=== PATIENT | female | born 1995 | race Caucasian/White ===

== ENCOUNTER 2016-12-28 10:38 | Emergency (ER) | payer MEDICAID ==
[~2016-12-28] VITALS: Ht 170.2 cm; Wt 85.7 kg
[2016-12-28 10:43] VITALS: BP 124/71
[2016-12-28] MEDS ORDERED: NKM (11:31)
--- NOTE | 2016-12-28 11:34 | Emergency Room Report ---
History of Present Illness General Chief Complaint: Upper Extremity Injury Source: Patient Present Illness HPI 21YOF with pain to distal end of left middle finger after punching wall last night. States she saw some hyperextension and then "popped it back" and now just c/o pain, swelling to tip. No previous injury noted. No OTC meds. No pain anywhere else. Allergies: Coded Allergies: No Known Allergies (Unverified , 12/28/16) Patient History Past Medical History: none Past Surgical History: none Pertinent Family History: none Social History: Denies: alcohol use, drug use, smoking Last Menstrual Period: 12/07/16 Now: No Immunizations: UTD Reviewed Nursing Documentation: PMH: Agreed, PSxH: Agreed Nursing Documentation-PMH Past Medical History: No Stated History Review of Systems All Other Systems: negative except mentioned in HPI Physical Exam Vital Signs Date Time Temp Pulse Resp B/P Pulse Ox O2 Delivery O2 Flow Rate FiO2 12/28/16 10:43 98.1 61 16 124/71 100 Room Air Sp02 EP Interpretation: reviewed, normal General Appearance: normal inspection, well appearing, no apparent distress, alert Head: atraumatic ENT: normal ENT inspection, hearing grossly normal, normal voice Neck: normal inspection, full range of motion, supple, no bony tend Respiratory: normal inspection, lungs clear, normal breath sounds, no respiratory distress, no retraction, no wheezing Cardiovascular #1: regular rate, rhythm, no edema Gastrointestinal: normal inspection, normal bowel sounds, non tender, soft, no guarding, no hernia Genitourinary: no CVA tenderness Musculoskeletal: normal inspection, back normal, normal range of motion, Vickie' s Sign negative, other - Left middle finger. Full ROM at MCP and PIP joints. Able to flex/extend at DIP joint. Some distal tip redness, swelling. Neurologic: normal inspection, alert, oriented x3, responsive, data control assistant III-XII nml as tested, motor strength/tone normal, speech normal Psychiatric: normal inspection, judgement/insight normal, mood/affect normal Skin: normal inspection, normal color, no rash Medical Decision Making Diagnostic Impression: Primary Impression: Pain of left middle finger Other X-Ray Diagnostic Results X-Ray ordered: Left fingers # of Views/Limited Vs Complete: 3 View EP Interpretation: Yes Interpretation: no fractures, no dislocation, no soft tissue swelling Indication: Pain Impression: No acute disease Interpreting ER Provider: Prema Last Vital Signs Date Time Temp Pulse Resp B/P Pulse Ox O2 Delivery O2 Flow Rate FiO2 12/28/16 10:43 98.1 61 16 124/71 100 Room Air Status: improved Disposition: HOME, SELF-CARE SELVIN MAKI M.D. Dec 28, 2016 11:34
[2016-12-28 12:05] VITALS: BP 124/71
--- NOTE | 2016-12-29 11:06 | Diagnostic Imaging Report ---
Indications: Left third finger pain Technique: Reviews left third finger. Findings: Comparison: None Tissues mildly swollen. No fracture, dislocation, joint space widening , soft tissue foreign body/gas, or other acute changes are identified. IMPRESSION: Soft tissue swelling, nonspecific Otherwise no evidence of acute injury to the left third finger.
== END 2016-12-28 12:05 | disposition home or self-care (01) ==
LOC: EMR 11:21
DX: M25.542 Pain in joints of left hand (principal)
CPT/HCPCS: 99283